=== PATIENT | female | born 1995 | race Caucasian/White ===

== ENCOUNTER 2017-12-27 21:08 | Emergency (ER) | payer OTHER ==
[~2017-12-27] VITALS: Ht 175.3 cm; Wt 63.2 kg
[~2017-12-27 21:08] MED LIST: CYAN100020 PO; FERR1TAB23 PO; FLUO40CA8 PO; LEVOTAB2 PO; MAGN1CAP2 PO; MISCCAP80 PO; phenergan PO
[2017-12-27 21:15] VITALS: Ht 175.3 cm; Wt 63.2 kg
[2017-12-27] MEDS ORDERED: LEVO50TA6 PO (21:51)
[2017-12-27] MEDS ORDERED: TRAZ100T29 PO (21:52)
[2017-12-27] MEDS ORDERED: SPIR25TA PO (21:53)
[2017-12-27] MEDS ORDERED: BCPILLS PO (21:54)
[2017-12-27] MEDS ORDERED: LISD50CA PO (21:55)
[2017-12-27] MEDS ORDERED: CHOL1000 PO (21:56)
[2017-12-27] MEDS ORDERED: RIZA1TAB7 PO (21:57)
[2017-12-27 22:11] LABS: BASO % 0.7 %; BASO ABS # 0.06 K/uL (0-0.2); EOS % 0.9 %; EOS ABS # 0.07 K/uL (0-0.5); HEMATOCRIT 41.5 % (37-47); HEMOGLOBIN 14.2 g/dL (12.0-16.0); IG# 0.01 K/uL (0.00-0.02); LYMPH % 34.5 %; MEAN CELL VOLUME 93.9 fL (80-100); MEAN CORPUSCULAR HEMOGLOBIN 32.1 pg (25-34); MEAN CORPUSCULAR HGB CONC 34.2 g/dl (32-36); MEAN PLATELET VOLUME 10.8 fL (7.4-10.4); MONO % 5.3 %; MONO ABS # 0.43 K/uL (0.11-0.59); NEUT % 58.5 %; NEUT ABS # 4.75 K/uL (1.4-6.5); PLATELET COUNT 238 K/uL (130-400); RED CELL DISTRIBUTION WIDTH CV 12.8 % (11.5-14.5); RED CELL DISTRIBUTION WIDTH SD 43.8 fL (36.4-46.3); WHITE BLOOD COUNT 8.12 K/uL (4.8-10.8)
--- NOTE | 2017-12-27 22:29 | DIAGNOSTIC IMAGING REPORT ---
HEAD CT NONCONTRAST CT DOSE: 537.48 mGy.cm HISTORY: left leg weakness TECHNIQUE: Multiaxial CT images of the head were performed without the use of intravenous contrast. Automated exposure control was utilized for this study. A dose lowering technique was utilized adhering to the principles of ALARA. Comparison: None. Findings: The paranasal sinuses and mastoid air cells are clear. The calvarium and skull base are intact. The ventricles and sulci are within normal limits. There is no mass, hematoma, midline shift, or acute infarct. Impression: No acute intracranial abnormality. Electronically signed by: Bj Schmitt M.D. 12/27/2017 10:27 PM Dictated Date/Time: 12/27/2017 10:24 PM
[2017-12-27 22:32] LABS: ALBUMIN 4.1 gm/dl (3.4-5.0); ALT/SGPT 38 U/L (12-78); BLOOD UREA NITROGEN 10 mg/dl (7-18); CALCIUM 9.1 mg/dl (8.5-10.1); CARBON DIOXIDE 28 mmol/L (21-32); CREATININE 0.94 mg/dl (0.60-1.20); GLUCOSE 118 mg/dl (70-99); POTASSIUM 3.5 mmol/L (3.5-5.1); SODIUM 137 mmol/L (136-145)
[2017-12-27 22:35] LABS: ALKALINE PHOSPHATASE 53 U/L (45-117); AST/SGOT 22 U/L (15-37); TOTAL PROTEIN 7.6 gm/dl (6.4-8.2)
[2017-12-28] MEDS ORDERED: LORAZEPAM 1 MG TAB SL STA (00:42)
[2017-12-28] MEDS ORDERED: GADAVIST IV PRN (03:15)
[2017-12-28] MEDS ORDERED: MoRPHine SULFATE 4 MG/ML 1 ML CARP\\VIAL IV STA (04:41)
--- NOTE | 2017-12-28 05:22 | EMERGENCY ROOM VISIT NOTE ---
History First contact with patient: 21:28 Chief Complaint: LEG PAIN,LEG INJURY Stated Complaint: CANNOT MOVE LEG L, OR FOOT AND TOES History of Present Illness The patient is a 22 year old female who presents to the Emergency Room with complaints of inability to move her left leg. The patient reports that her symptoms began approximately 7 hours ago. She states that she was in the shower and felt at the back of her left knee was stiff. She reports she was unable to fully straighten the leg. She states that 3 hours prior to arrival, she became unable to move her left toes and ankle. She reports a pain in her left upper thigh but feels this is because she is tensing up her leg. She denies any pain in the lower leg. She denies any numbness or sensory changes. She denies any history of similar symptoms. She denies any recent illnesses. She does report that she received 3 vaccines last week (MMR, Tdap, and Hepatitis B). She denies any numbness or weakness of her upper extremities. She denies pain in her back. She denies chest pain, shortness of breath, fevers , abdominal pain, urinary symptoms, blurred vision or slurred speech. Review of Systems A complete 10 point review of systems was reviewed with the patient with pertinent positives and negatives as per history of present illness. All else were negative. Past Medical/Surgical History Medical Problems: (1) Concussion Surgical Problems: (1) [place] teeth removed Family History Heart disease Hypertension Social History Smoking Status: Never Smoker Alcohol Use: none Marital Status: single Housing Status: lives with roommate Occupation Status: [employer] student Current/Historical Medications Scheduled Control Pills ( Control Pills), 1 TAB PO DAILY Cholecalciferol (Vitamin D3), Unknown Dose PO DAILY Levothyroxine Sodium (Levothyroxine Sodium), 50 MCG PO DAILY Lisdexamfetamine Dimesylate (Vyvanse), 50 MG PO DAILY Magnesium Oxide (Mg Supplement (Magnesium), Unknown Dose PO QD Rizatriptan Benzoate (Rizatriptan Benzoate), Unknown Dose PO PRN/UD Spironolactone (Aldactone), 25 MG PO DAILY Trazodone Hcl (Trazodone), 100 MG PO HS Physical Exam Vital Signs Date Time Temp Pulse Resp B/P (MAP) Pulse Ox O2 Delivery O2 Flow Rate FiO2 12/28/17 09:37 37.0 102 20 123/93 100 12/28/17 09:37 37.0 102 20 123/93 100 12/28/17 09:15 102 20 123/93 100 12/28/17 08:00 82 20 133/84 100 Room Air 12/28/17 06:27 59 15 98 12/28/17 06:12 62 20 97 12/28/17 05:57 76 20 98 12/28/17 05:42 69 12 97 12/28/17 05:37 67 14 97 12/28/17 05:22 70 14 97 12/28/17 05:07 71 13 97 12/28/17 04:52 83 15 96 12/28/17 04:40 78 16 114/82 98 12/28/17 04:37 81 98 12/28/17 00:22 79 99 12/28/17 00:17 89 18 138/78 98 Room Air 12/27/17 23:07 87 16 132/83 100 Room Air 12/27/17 21:15 37.0 111 18 148/77 99 Room Air Physical Exam VITALS: Vitals are noted on the nurse's note and reviewed by myself. Vital signs stable. GENERAL: This is a 22-year-old female, in no acute distress, nondiaphoretic, well-developed well-nourished. SKIN: The skin was without rashes, erythema, edema, or bruising. EARS: External auditory canals clear, tympanic membranes pearly tan without erythema or effusion bilaterally. EYES: Pupils equal round and reactive to light and accommodation. Extraocular movements intact. MOUTH: Mucous membranes moist. NECK: Supple without nuchal rigidity. No lymphadenopathy. Cervical spine is nontender. HEART: Regular rate and rhythm without murmurs gallops or rubs. LUNGS: Clear to auscultation bilaterally without wheezes, rales or rhonchi. MUSCULOSKELETAL: Strength 0/5 of the left lower extremity throughout. Patient is unable to plantarflex, dorsiflex, flex/extend the knee or hip. There is some rigidity to passive flexion of the knee and hip. Strength of the right lower extremity and bilateral upper extremities 5/5 throughout. NEURO: Patient was alert and oriented to person place and time. Discrimination between light and sharp touch is decreased over the left foot. Otherwise normal sensation to light and sharp touch. DTRs absent in the left lower extremity, 1+ right lower extremity. Medical Decision & Procedures ER Provider Diagnostic Interpretation: HEAD CT NONCONTRAST Findings: The paranasal sinuses and mastoid air cells are clear. The calvarium and skull base are intact. The ventricles and sulci are within normal limits. There is no mass, hematoma, midline shift, or acute infarct. Impression: No acute intracranial abnormality. BRAIN COMBO FINDINGS: Diffusion-weighted images are negative for an acute ischemic insult. Signal characteristics are unremarkable. Ventricular system is midline. The sella and parasellar regions are unremarkable. Postcontrast images are negative for an enhancing lesion. IMPRESSION: Normal study. CERVICAL SPINE COMBO IMPRESSION: 1. At C5-C6 there is a small central broad-based disc protrusion and uncovertebral spurring which results in mild central canal narrowing without significant foraminal stenosis. 2. Small disc bulge at C4-C5 without significant central canal or foraminal stenosis. 3. Reversal of the normal cervical lordosis with 10 degrees kyphosis centered at C5-C6. 4. No abnormal enhancement, however the postcontrast images are very motion degraded. MRI OF THE THORACIC SPINE WITHOUT A WITH GADOLINIUM FINDINGS: Imaging was performed in the sagittal and axial planes, before and after the administration of 6.2 cc of intravenous Gadavist. There are no suspicious areas of marrow replacement. No disc herniations are visualized. There is no spinal stenosis. No disc herniations are visualized. No paraspinal masses are visualized. No cord lesions are visualized. There is no pathologic enhancement. IMPRESSION: Normal MRI of the thoracic spine. LUMBAR SPINE COMBINATION FINDINGS: For the purpose of the report the L5-S1 disc space will be located on axial image 27 of 30. Signal characteristics the vertebral bodies are unremarkable. Mild degenerative disc change L5-S1. L1-L2: No significant central canal or neural foraminal narrowing. L2-L3: No significant central canal or neural foraminal narrowing. L3-L4: No significant central canal or neural foraminal narrowing. L4-L5: No significant central canal or neural foraminal narrowing. L5-S1: Central bulging disc with minimal impact anterior thecal sac. Neuroforamina are patent bilaterally. IMPRESSION: 1. Central bulging disc L5-S1 with minimal impact upon the thecal sac. 2. Otherwise negative study. Laboratory Results 12/27/17 22:01 Red Blood Count 4.42, Mean Corpuscular Volume 93.9, Mean Corpuscular Hemoglobin 32.1, Mean Corpuscular Hemoglobin Concent 34.2, Mean Platelet Volume 10.8, Neutrophils (%) (Auto) 58.5, Lymphocytes (%) (Auto) 34.5, Monocytes (%) (Auto) 5.3, Eosinophils (%) (Auto) 0.9, Basophils (%) (Auto) 0.7, Neutrophils # (Auto) 4.75, Lymphocytes # (Auto) 2.80, Monocytes # (Auto) 0.43, Eosinophils # (Auto) 0.07, Basophils # (Auto) 0.06 12/27/17 22:01 Test 12/27/17 22:01 12/27/17 22:10 White Blood Count 8.12 K/uL (4.8-10.8) Red Blood Count 4.42 M/uL (4.2-5.4) Hemoglobin 14.2 g/dL (12.0-16.0) Hematocrit 41.5 % (37-47) Mean Corpuscular Volume 93.9 fL (80-100) Mean Corpuscular Hemoglobin 32.1 pg (25-34) Mean Corpuscular Hemoglobin Concent 34.2 g/dl (32-36) Platelet Count 238 K/uL (130-400) Mean Platelet Volume 10.8 fL (7.4-10.4) Neutrophils (%) (Auto) 58.5 % Lymphocytes (%) (Auto) 34.5 % Monocytes (%) (Auto) 5.3 % Eosinophils (%) (Auto) 0.9 % Basophils (%) (Auto) 0.7 % Neutrophils # (Auto) 4.75 K/uL (1.4-6.5) Lymphocytes # (Auto) 2.80 K/uL (1.2-3.4) Monocytes # (Auto) 0.43 K/uL (0.11-0.59) Eosinophils # (Auto) 0.07 K/uL (0-0.5) Basophils # (Auto) 0.06 K/uL (0-0.2) RDW Standard Deviation 43.8 fL (36.4-46.3) RDW Coefficient of Variation 12.8 % (11.5-14.5) Immature Granulocyte % (Auto) 0.1 % Immature Granulocyte # (Auto) 0.01 K/uL (0.00-0.02) Erythrocyte Sedimentation Rate 2 mm/hr (0-21) Anion Gap 6.0 mmol/L (3-11) Est Creatinine Clear Calc Drug Dose 94.5 ml/min Estimated GFR () 100.5 Estimated GFR (Non- 86.7 BUN/Creatinine Ratio 10.5 (10-20) Calcium Level 9.1 mg/dl (8.5-10.1) Total Bilirubin 0.2 mg/dl (0.2-1) Aspartate Amino Transf (AST/SGOT) 22 U/L (15-37) Alanine Aminotransferase (ALT/SGPT) 38 U/L (12-78) Alkaline Phosphatase 53 U/L (45-117) C-Reactive Protein < 0.29 mg/dl (0-0.29) Total Protein 7.6 gm/dl (6.4-8.2) Albumin 4.1 gm/dl (3.4-5.0) Globulin 3.5 gm/dl (2.5-4.0) Albumin/Globulin Ratio 1.2 (0.9-2) Lyme Disease IgG Antibody NEG (NEG) Lyme Disease IgM Antibody NEG (NEG) Urine Color YELLOW Urine Appearance CLOUDY (CLEAR) Urine pH >= 9.0 (4.5-7.5) Urine Specific [place] 1.014 (1.000-1.030) Urine Protein NEG (NEG) Urine Glucose (UA) NEG (NEG) Urine Ketones NEG (NEG) Urine Occult Blood NEG (NEG) Urine Nitrite NEG (NEG) Urine Bilirubin NEG (NEG) Urine Urobilinogen NEG (NEG) Urine Leukocyte Esterase NEG (NEG) Urine WBC (Auto) 1-5 /hpf (0-5) Urine RBC (Auto) 0-4 /hpf (0-4) Urine Hyaline Casts (Auto) 0 /lpf (0-5) Urine Epithelial Cells (Auto) 20-30 /lpf (0-5) Urine Bacteria (Auto) NEG (NEG) Urine Test NEG (NEG) Medications Administered Medications (Trade) Dose Ordered Sig/Abelino Route Start Time Stop Time Status Last Admin Dose Admin Lorazepam (Ativan Tab) 1 mg NOW STAT SL 12/28/17 00:42 12/28/17 00:43 DC 12/28/17 01:02 1 MG Morphine Sulfate (MoRPHine SULFATE INJ) 4 mg NOW STAT IV 12/28/17 04:41 12/28/17 04:42 DC 12/28/17 04:47 4 MG ED Course The patient was evaluated as above. Labs were drawn and IV access was obtained. Case was discussed with Dr. Francis of neurology. He recommended MRI of the brain, cervical, thoracic and lumbar spine with and without contrast and states the patient may be admitted to the medical service with neuro consultation in the morning. Patient was sent for MRI. She did request something for anxiety and was given 1 mg Ativan sublingually. MRIs are completed and patient returned to her room. She now states that her right leg is weak and she is unable to move it. Case was discussed with the [facility] hospitalist, who recommended transfer. Case was discussed with Dr. Saavedra of [facility] neurology, who agreed with recommendations for transfer. He will evaluate the patient in the ED. Case was discussed with Dr. Long, [place] [facility]. She will accept patient in transfer. She did request to speak with Dr. Saavedra. Patient was transferred to [facility] by helicopter. Medical Decision Differential diagnosis includes Guillain-Baldwin syndrome, transverse myelitis, cauda equina syndrome, myasthenia gravis, CVA, intracranial hemorrhage, among others. The patient is a 22-year-old female who presents today complaining of left leg weakness. Exam did reveal marked weakness and absent patellar reflexes. Labs were unremarkable, with no leukocytosis, anemia, or concerning electrolyte abnormalities. ESR and CRP were not elevated. Lyme screen negative. Urinalysis was not suggestive of infection. Urine was negative. CT of the head was performed and was negative. The case was initially discussed with Dr. Saavedra of neurology. At that time, he recommended performing MRI with and without contrast of the head, cervical spine , thoracic spine and lumbar spine and then admitting the patient to medicine. These were performed, however patient then also developed paralysis of her right leg. Given his progression of symptoms, the on-call neurologist, Dr. Saavedra was consulted and did evaluate the patient. He was able to obtain reflexes, however there is still significant concern for Guillain-Baldwin syndrome. He recommended transfer as we do not have plasmapheresis at this facility. The case was discussed with [place] neurolog[facility], who accepted the patient in transfer. They recommended flying the patient the patient was transferred by helicopter to [facility]. Medication Reconcilliation Current Medication List: was personally reviewed by me Blood Pressure Screening Patient's blood pressure: Normal blood pressure Impression Primary Impression: Guillain Baldwin syndrome Critical Care I have personally spent greater than 60 minutes of critical care time in the direct management of this patient. This includes bedside care, interpretation of diagnostic studies, and testing, discussion with consultants, patient, and family members, and other required patient management activities. This 60 minutes is in excess of all separately billable procedures. Departure Information Referrals No Doctor, Assigned (PCP) Patient Instructions My [facility]
--- NOTE | 2017-12-28 06:30 | DIAGNOSTIC IMAGING REPORT ---
LUMBAR SPINE COMBINATION HISTORY: Pain. Neuropathy. left leg weakness TECHNIQUE: Multiplanar multisequence MRI of the lumbar spine was performed both before and after the intravenous administration of contrast. COMPARISON: None. FINDINGS: For the purpose of the report the L5-S1 disc space will be located on axial image 27 of 30. Signal characteristics the vertebral bodies are unremarkable. Mild degenerative disc change L5-S1. L1-L2: No significant central canal or neural foraminal narrowing. L2-L3: No significant central canal or neural foraminal narrowing. L3-L4: No significant central canal or neural foraminal narrowing. L4-L5: No significant central canal or neural foraminal narrowing. L5-S1: Central bulging disc with minimal impact anterior thecal sac. Neuroforamina are patent bilaterally. IMPRESSION: 1. Central bulging disc L5-S1 with minimal impact upon the thecal sac. 2. Otherwise negative study. The above report was generated using voice recognition software. It may contain grammatical, syntax or spelling errors. Electronically signed by: Adriel Chacko M.D. 12/28/2017 6:29 AM Dictated Date/Time: 12/28/2017 6:26 AM
--- NOTE | 2017-12-28 06:31 | DIAGNOSTIC IMAGING REPORT ---
MRI OF THE THORACIC SPINE WITHOUT A WITH GADOLINIUM CLINICAL HISTORY: Left leg paralysis. Left foot tingling. COMPARISON STUDY: No previous studies for comparison. FINDINGS: Imaging was performed in the sagittal and axial planes, before and after the administration of 6.2 cc of intravenous Gadavist. There are no suspicious areas of marrow replacement. No disc herniations are visualized. There is no spinal stenosis. No disc herniations are visualized. No paraspinal masses are visualized. No cord lesions are visualized. There is no pathologic enhancement. IMPRESSION: Normal MRI of the thoracic spine. Electronically signed by: Brian Pabon M.D. 12/28/2017 6:30 AM Dictated Date/Time: 12/28/2017 6:27 AM
--- NOTE | 2017-12-28 06:33 | DIAGNOSTIC IMAGING REPORT ---
BRAIN COMBO CLINICAL HISTORY: left leg weakness pain. Peripheral neuropathy. COMPARISON STUDY: No previous studies for comparison. TECHNIQUE: Utilizing a 1.5 Caty magnet and dedicated coil, multiplanar, multiecho imaging of the brain was performed pre and postcontrast administration. IV administration of 6.2 mL of Gadavist contrast was uneventful. FINDINGS: Diffusion-weighted images are negative for an acute ischemic insult. Signal characteristics are unremarkable. Ventricular system is midline. The sella and parasellar regions are unremarkable. Postcontrast images are negative for an enhancing lesion. IMPRESSION: Normal study. The above report was generated using voice recognition software. It may contain grammatical, syntax or spelling errors. Electronically signed by: Adriel Chacko M.D. 12/28/2017 6:32 AM Dictated Date/Time: 12/28/2017 6:29 AM
--- NOTE | 2017-12-28 07:03 | DIAGNOSTIC IMAGING REPORT ---
CERVICAL SPINE COMBO HISTORY: 22 years-old Female left leg weakness acute tingling of the left foot COMPARISON: Brain and thoracic spine MRI of same day TECHNIQUE: Multiplanar multisequence MRI of the cervical spine was obtained both with and without the use of 6.2 mL Gadavist FINDINGS: The large field view silk spooler localizer images demonstrate no acute abnormality. Imaged posterior fossa structures, paraspinal tissues and imaged upper thorax appear unremarkable. There is reversal of the normal cervical lordosis with kyphosis measuring 10 degrees centered at C5-C6. Signal within the cervical spinal cord is within normal limits. There is no abnormal enhancement identified. The sagittal postcontrast images are motion degraded. The axial T1 postcontrast images are extremely motion degraded and nearly nondiagnostic. No acute fracture or focal bone marrow edema. C2-C3: No central canal or foraminal narrowing. C3-C4: Minimal uncovertebral spurring without significant central canal or foraminal narrowing. C4-C5: Small disc bulge flattens the ventral thecal sac without significant central canal stenosis. No significant central canal or foraminal narrowing. C5-C6: Small central broad-based disc protrusion and uncovertebral spurring results in mild central canal narrowing without significant foraminal stenosis. C6-C7: Small posterior disc osteophyte complex without central canal or foraminal stenosis. C7-T1: No central canal or foraminal narrowing. The imaged upper thoracic levels are unremarkable. IMPRESSION: 1. At C5-C6 there is a small central broad-based disc protrusion and uncovertebral spurring which results in mild central canal narrowing without significant foraminal stenosis. 2. Small disc bulge at C4-C5 without significant central canal or foraminal stenosis. 3. Reversal of the normal cervical lordosis with 10 degrees kyphosis centered at C5-C6. 4. No abnormal enhancement, however the postcontrast images are very motion degraded. The above report was generated using voice recognition software. It may contain grammatical, syntax or spelling errors. Electronically signed by: All Vergara M.D. 12/28/2017 7:02 AM Dictated Date/Time: 12/28/2017 6:47 AM
--- NOTE | 2017-12-28 08:30 | EMERGENCY ROOM VISIT NOTE ---
ED Visit Note First contact with patient: 08:25 The patient was seen and examined with Sandy Chawla PA-C. I agree with the history, physical and findings. Please see the note for disposition and details. I did see and evaluate the patient as well as discussed the patient with the physician assistant hairstylist as well as the on-call neurologist who was at the bedside to evaluate the patient. I was concern for possible GBS. Patient is unable to move the lower extremity's. There was questionable concern for possible reflexes in lower extremities. However, given the patient's recent immunization and possible bilateral lower extremity paralysis patient was accepted and agreed to be transferred via helicopter to [facility]. I did have an FVC and a negative insect with forceps performed. The patient ranges from 3.8 - 4 L on her FVC and the patient's NIF was greater than -80 mmHg. The patient currently does not have any respiratory compromise. Patient was transferred.
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
[2017-12-28 09:37] VITALS: BP 123/93; PULSE 102; TEMP 37; O2SAT 100
== END 2017-12-28 09:15 | disposition short-term general hospital (02) ==
LOC: C.EDB 21:10
DX: G83.14 Monoplegia of lower limb affecting left nondominant side (principal); Z82.49 Family history of ischemic heart disease and other diseases of the circulatory system; Z79.3 Long term (current) use of hormonal contraceptives